=== PATIENT | male | born 1985 | race African-American/Black ===

== ENCOUNTER 2020-09-13 19:31 | Emergency (ER) | payer BC, OTHER ==
[~2020-09-13] VITALS: Ht 188 cm; Wt 132.0 kg
[2020-09-13 19:34] VITALS: BP 162/88
--- NOTE | 2020-09-13 19:35 | NUR ---
35 Y/O MALE BIBA C/O SEIZURE AT [facility]. PER EMS, PT WAS FOUND SEIZING ON THE FLOOR, SEIZURE LASTED FOR A MINUTE, BUT PT WAS [id number], GCS 15. PT HAS A SMALL INJURY AROUND THE MOUTH. PT IS A&OX4, GCS 15. SEIZURE PRECAUTIONS WERE PLACED. PT DENIES ANY PAIN NKA PMH: SEIZURE DISORDER
--- NOTE | 2020-09-13 19:35 | NUR ---
CHRISTY ALS TO BED #7
--- NOTE | 2020-09-13 19:42 | NUR ---
DR. SIERRA AT BEDSIDE FOR MSE
[2020-09-13] MEDS ORDERED: LORazepam 2 MG/ML VIAL IVP ONE (19:55)
[2020-09-13 20:28] LABS: ANION GAP 18.7 (8-16); CARBON DIOXIDE 23.8 mmol/L (21-32); CREATININE 1.3 mg/dL (0.6-1.3); POTASSIUM 4.5 mmol/L (3.5-5.1)
--- NOTE | 2020-09-13 21:14 | NUR ---
Patient discharged with v/s stable. Written and verbal after care instructions given and explained. Patient verbalized understanding. Ambulatory with steady gait. All questions addressed prior to discharge. Advised to follow up with PMD.
[2020-09-13 21:49] VITALS: BP 162/88
== END 2020-09-13 21:14 | disposition home or self-care (01) ==
LOC: MED 19:31
DX: R56.9 Unspecified convulsions (principal)
CPT/HCPCS: 36415; 80048; 99283; J2060